=== PATIENT | female | born 2000 | race Caucasian/White ===

== ENCOUNTER 2023-12-05 06:23 | Outpatient (REF) | payer OTHER, SELFPAY ==
--- NOTE | ~2023-12-05 | US_ITS ---
EXAMINATION: ULTRASOUND OF THE PELVIS CLINICAL INFORMATION: Persistent urinary symptoms and pelvic discomfort. COMPARISON: None TECHNIQUE: Transabdominal and transvaginal pelvic ultrasound. A transvaginal study was performed in addition to the transabdominal study which did not yield an adequate examination of the uterus and ovaries due to superimposed distended gas-filled loops of bowel. FINDINGS: Uterus: The uterus is anteverted and normal in size and appearance, measuring 6.2 x 3.1 x 4. The endometrial stripe thickness is normal, measuring 0.5 cm in thickness. No focal myometrial mass is seen. The cervical length is normal measuring 3 cm. There is a small amount of endocervical free fluid, likely related to patient's current menstruation. Ovaries: The ovaries bilaterally are visualized and appear normal, with the right ovary measuring 2.1 x 1.5 x 1 cm (1.7 and volume) and the left ovary measuring 1.7 x 2.2 x 2.2 cm (4.3 mL volume). Spectral Doppler analysis of the arterial and venous flow to both ovaries was not performed. Other: No adnexal mass or free fluid collection seen. US/US pelvic and transvaginal IMPRESSION: 1. Small amount of endocervical free fluid, likely related to the patient's current menstruation. 2. Otherwise normal exam. Electronically signed by: Claribel Ku MD 12/06/2023 05:00 PM EDT
== END 2023-12-05 06:24 | disposition home or self-care (01) ==
LOC: HO.UMASIMG 06:23
PROVIDERS: Visit Provider Nurse Practitioner
DX: R10.2 Pelvic and perineal pain (principal); R35.0 Frequency of micturition; R30.0 Dysuria
CPT/HCPCS: 76830; 76856